=== PATIENT | male | born 1995 | race Caucasian/White ===

== ENCOUNTER 2017-03-27 11:25 | Inpatient (IN) | payer OTHER ==
[~2017-03-27] VITALS: Ht 182.9 cm; Wt 77.9 kg
[2017-03-27] MEDS ORDERED: TUMS500C PO (11:37)
[2017-03-27] MEDS ORDERED: IBUP-1022 PO (11:37)
[2017-03-27] MEDS ORDERED: NS 1,000 ML IV ONE (12:15)
[2017-03-27] MEDS ORDERED: GASTROGRAFIN SOLUTION 30ML (Q9963) PO ONE ×2 (12:30→13:00)
[2017-03-27 12:48] LABS: BASO % 0.2 % (0.0-1.0); EOS % 0.3 % (0.0-3.0); LARGE UNSTAINED CELL # 0.1 K/mm3 (0.0-0.4); LARGE UNSTAINED CELL % 0.6 % (0.0-4.0); LYMPH # 1.3 K/mm3 (1.5-6.5); LYMPH % 7.3 % (24.0-44.0); MEAN CORPUSCULAR HEMOGLOBIN 33.4 pg (27.0-33.0); MEAN CORPUSCULAR HGB CONC 34.3 g/dl (32.0-36.5); MEAN CORPUSCULAR VOLUME 97.2 fl (80.0-96.0); MONO # 0.8 K/mm3 (0.0-0.8); MONO % 4.8 % (0.0-5.0); NEUTROPHILS # 14.1 K/mm3 (1.8-7.7); NEUTROPHILS % 86.7 % (36.0-66.0); PLATELET COUNT, AUTOMATED 217 k/mm3 (150-450); RED CELL DISTRIBUTION WIDTH 12.2 % (11.5-14.5); WHITE BLOOD COUNT 16.2 K/mm3 (4.0-10.0)
[2017-03-27 13:00] LABS: ALBUMIN 5.1 GM/DL (3.2-5.2); ALBUMIN/GLOBULIN RATIO 1.19 (1.00-1.93); ALKALINE PHOSPHATASE 91 U/L (45-117); ALT/SGPT 21 U/L (12-78); ANION GAP 6 MEQ/L (8-16); AST/SGOT 9 U/L (15-37); BILIRUBIN,DIRECT 0.3 MG/DL (0.0-0.2); BILIRUBIN,TOTAL 2.7 MG/DL (0.2-1.0); BLOOD UREA NITROGEN 11 MG/DL (7-18); CALCIUM LEVEL 10.1 MG/DL (8.5-10.1); CARBON DIOXIDE LEVEL 33 MEQ/L (21-32); CHLORIDE LEVEL 100 MEQ/L (98-107); CREATININE FOR GFR 0.91 MG/DL (0.70-1.30); GLOMERULAR FILTRATION RATE > 60.0 (>60); GLUCOSE, FASTING 86 MG/DL (70-105); POTASSIUM SERUM 3.7 MEQ/L (3.5-5.1); SODIUM LEVEL 139 MEQ/L (136-145); TOTAL PROTEIN 9.4 GM/DL (6.4-8.2)
[2017-03-27] MEDS ORDERED: ONDANSETRON 4MG/2ML VIAL (J2405) IV ONE (13:15)
[2017-03-27] MEDS ORDERED: MORPHINE 4 MG/ML 1ML SYRINGE IV ONE ×2 (13:15→14:15)
[2017-03-27] MEDS ORDERED: ISOVUE-370 76% 100ML VIAL (Q9967) As Ordered ONE (13:33)
--- NOTE | 2017-03-27 14:05 | REP ---
CT abdomen pelvis with IV and oral contrast: There are no comparisons. The visualized lung bates are unremarkable. The hepatic parenchyma, gallbladder, pancreas and spleen are normal size and unremarkable. The adrenals, kidneys and abdominal aorta are unremarkable. There is no bowel distension or obstruction. Pelvis: There is a large right lower quadrant phlegmon adjacent to the cecum containing two calcifications measuring 7.0 cm cranial caudad by 4.6 cm transversely by 6.2 cm AP, compatible with appendiceal abscess and phlegmon. There is a small volume of ascites in the dependent pelvis. The pelvic bowel loops are otherwise unremarkable. Impression: Large right lower quadrant phlegmon adjacent to the cecum and containing two calcifications, compatible with periappendiceal phlegmon. There is a small volume of ascites in the pelvis. There is no pneumoperitoneum. No bowel distension or obstruction. No hydronephrosis. The gallbladder is unremarkable. Signed by Juan Carlos Kessler MD 03/27/2017 01:58 P
[2017-03-27] MEDS ORDERED: PIPERACILLIN/TAZOBACTAM SOD 3.375 GM in D5W MINI-BAG PLUS 50 ML IV ONE (14:15)
[2017-03-27] MEDS ORDERED: HYDROmorphone HCL 1 MG/ML SYRINGE (J1170) IV ONE (16:00)
--- NOTE | 2017-03-27 18:41 | ED PDOC ---
Post-Departure Follow-Up pt still in pain after sleeping and resting for extended period. surgeoncl was contacted and called to emergency in OR and will come down to admit and care for patient after completion in OR. pt still with stable VS at this time. awaiting orders ERA JACKSON PA-C Mar 27, 2017 18:41
[2017-03-27] MEDS ORDERED: BUPIVACAINE HCL 0.25% 30 ML VIAL As Ordered ONE (20:10)
[2017-03-27] MEDS ORDERED: MIDAZOLAM INJ 2 MG/2 ML VIAL (J2250) As Ordered ONE (20:13)
[2017-03-27] MEDS ORDERED: fentaNYL 100 MCG/2 ML INJECTION (J3010) As Ordered ONE (20:13)
[2017-03-27] MEDS ORDERED: PROPOFOL 200 MG/20 ML VIAL As Ordered ONE (20:13)
[2017-03-27] MEDS ORDERED: ROCURONIUM BROMIDE 50 MG/5 ML VIAL/SYRINGE As Ordered ONE ×3 (20:14→22:32)
[2017-03-27] MEDS ORDERED: ONDANSETRON 4MG/2ML VIAL (J2405) As Ordered ONE (20:14)
[2017-03-27] MEDS ORDERED: LIDOCAINE 2% INJ 100 MG/5 ML SDV (FOR ANES.) As Ordered ONE (20:14)
[2017-03-27] MEDS ORDERED: KETOROLAC 60 MG/2 ML VIAL (J1885) As Ordered ONE (20:14)
[2017-03-27] MEDS ORDERED: ZOSYN 3.375 GM VIAL (J2543) As Ordered ONE (20:41)
[2017-03-27] MEDS ORDERED: fentaNYL 250 MCG/5 ML INJECTION (J3010) As Ordered ONE (20:45)
[2017-03-27] MEDS ORDERED: GLYCOPYRROLATE INJ 0.2 MG/ML 2 ML VIAL As Ordered ONE (20:54)
[2017-03-27] MEDS ORDERED: NEOSTIGMINE 1MG/ML 5 ML SYRINGE (J2710) As Ordered ONE (20:54)
[2017-03-27] MEDS ORDERED: METOCLOPRAMIDE INJ 10MG/2ML VIAL (J2765) As Ordered ONE (21:06)
[2017-03-27] MEDS ORDERED: LABETALOL HCL 100 MG/20 ML VIAL As Ordered ONE (21:20)
[2017-03-27] MEDS ORDERED: HYDROmorphone HCL 2 MG/ML 1ML VIAL (J1170) As Ordered ONE (22:44)
[2017-03-28] VITALS (10 sets, daily range): BP systolic 106–141; BP diastolic 53–67
[2017-03-28] MEDS ORDERED: MEPERIDINE INJ 25 MG/ML VIAL (J2175) IV PRN
[2017-03-28] MEDS ORDERED: METOCLOPRAMIDE INJ 10MG/2ML VIAL (J2765) IV PRN
[2017-03-28] MEDS ORDERED: fentaNYL 100 MCG/2 ML INJECTION (J3010) IV PRN
[2017-03-28] MEDS ORDERED: KETOROLAC 30 MG/ML VIAL (J1885) IV PRN
[2017-03-28] MEDS ORDERED: MORPHINE 2 MG/ML 1ML SYRINGE IV PRN (01:00)
[2017-03-28] MEDS ORDERED: ACETAMINOPHEN TAB 650MG DOSE (2X325MG) PO PRN (01:00)
[2017-03-28] MEDS ORDERED: ONDANSETRON 4MG/2ML VIAL (J2405) IV PRN ×2 (01:00)
[2017-03-28] MEDS ORDERED: MORPHINE 4 MG/ML 1ML SYRINGE IV PRN (01:15)
[2017-03-28] MEDS: LR 1,000 ML IV SCH ×2 (01:18→14:09)
[2017-03-28] MEDS: PIPERACILLIN/TAZOBACTAM SOD 3.375 GM in D5W MINI-BAG PLUS 50 ML IV SCH ×4 (02:59→21:39)
[2017-03-28] MEDS: KETOROLAC 30 MG/ML VIAL (J1885) IV SCH ×4 (03:00→21:40)
[2017-03-28 07:08] LABS: BASO % 0.1 % (0.0-1.0); EOS % 0.1 % (0.0-3.0); LARGE UNSTAINED CELL # 0.1 K/mm3 (0.0-0.4); LARGE UNSTAINED CELL % 0.8 % (0.0-4.0); LYMPH % 6.1 % (24.0-44.0); MEAN CORPUSCULAR HEMOGLOBIN 34.2 pg (27.0-33.0); MEAN CORPUSCULAR HGB CONC 35.4 g/dl (32.0-36.5); MEAN CORPUSCULAR VOLUME 96.7 fl (80.0-96.0); MONO # 0.6 K/mm3 (0.0-0.8); MONO % 4.5 % (0.0-5.0); NEUTROPHILS # 12.3 K/mm3 (1.8-7.7); NEUTROPHILS % 88.3 % (36.0-66.0); PLATELET COUNT, AUTOMATED 166 k/mm3 (150-450)
[2017-03-28 07:35] LABS: ALBUMIN 2.8 GM/DL (3.2-5.2); ALBUMIN/GLOBULIN RATIO 1.22 (1.00-1.93); ALKALINE PHOSPHATASE 50 U/L (45-117); ALT/SGPT 15 U/L (12-78); ANION GAP 7 MEQ/L (8-16); AST/SGOT 9 U/L (15-37); BILIRUBIN,TOTAL 4.4 MG/DL (0.2-1.0); BLOOD UREA NITROGEN 10 MG/DL (7-18); CALCIUM LEVEL 8.3 MG/DL (8.5-10.1); CARBON DIOXIDE LEVEL 31 MEQ/L (21-32); CHLORIDE LEVEL 102 MEQ/L (98-107); CREATININE FOR GFR 1.05 MG/DL (0.70-1.30); GLOMERULAR FILTRATION RATE > 60.0 (>60); GLUCOSE, FASTING 125 MG/DL (70-105); POTASSIUM SERUM 4.3 MEQ/L (3.5-5.1); SODIUM LEVEL 140 MEQ/L (136-145); TOTAL PROTEIN 5.1 GM/DL (6.4-8.2)
[2017-03-29] VITALS: BP_SYST 126; BP_SYST 91; BP_DIAS 52; BP_DIAS 59
[2017-03-29] MEDS: KETOROLAC 30 MG/ML VIAL (J1885) IV SCH (02:39)
[2017-03-29] MEDS: PIPERACILLIN/TAZOBACTAM SOD 3.375 GM in D5W MINI-BAG PLUS 50 ML IV SCH ×4 (02:39→21:00)
[2017-03-29 04:00] VITALS: BP 123/56
[2017-03-29 06:45] LABS: BASO % 0.2 % (0.0-1.0); EOS # 0.1 K/mm3 (0.0-0.50); EOS % 0.9 % (0.0-3.0); LARGE UNSTAINED CELL # 0.1 K/mm3 (0.0-0.4); LARGE UNSTAINED CELL % 1.3 % (0.0-4.0); LYMPH # 1.1 K/mm3 (1.5-6.5); LYMPH % 10.4 % (24.0-44.0); MEAN CORPUSCULAR HEMOGLOBIN 34.1 pg (27.0-33.0); MEAN CORPUSCULAR HGB CONC 35.1 g/dl (32.0-36.5); MONO # 0.7 K/mm3 (0.0-0.8); MONO % 7.2 % (0.0-5.0); NEUTROPHILS # 7.4 K/mm3 (1.8-7.7); PLATELET COUNT, AUTOMATED 152 k/mm3 (150-450); RED CELL DISTRIBUTION WIDTH 12.1 % (11.5-14.5); WHITE BLOOD COUNT 9.3 K/mm3 (4.0-10.0)
[2017-03-29] MEDS ORDERED: IBUPROFEN 600 MG TAB PO PRN (07:30)
[2017-03-29] MEDS ORDERED: NORCO, ANEXSIA 5/325MG TABLET (HYDROcodone/ACETAMINOPHEN) PO PRN ×2 (07:30)
[2017-03-29 08:00] VITALS: BP 127/62
[2017-03-29 12:00] VITALS: BP 118/74
[2017-03-29 12:50] LABS: ALBUMIN 2.7 GM/DL (3.2-5.2); ALBUMIN/GLOBULIN RATIO 1.04 (1.00-1.93); ALKALINE PHOSPHATASE 52 U/L (45-117); ALT/SGPT 14 U/L (12-78); ANION GAP 7 MEQ/L (8-16); AST/SGOT 12 U/L (15-37); BILIRUBIN,TOTAL 3.6 MG/DL (0.2-1.0); BLOOD UREA NITROGEN 9 MG/DL (7-18); CALCIUM LEVEL 8.1 MG/DL (8.5-10.1); CARBON DIOXIDE LEVEL 29 MEQ/L (21-32); CHLORIDE LEVEL 106 MEQ/L (98-107); CREATININE FOR GFR 0.79 MG/DL (0.70-1.30); GLOMERULAR FILTRATION RATE > 60.0 (>60); GLUCOSE, FASTING 93 MG/DL (70-105); POTASSIUM SERUM 3.9 MEQ/L (3.5-5.1); SODIUM LEVEL 142 MEQ/L (136-145); TOTAL PROTEIN 5.3 GM/DL (6.4-8.2)
[2017-03-29 16:00] VITALS: BP 139/63
[2017-03-29 20:14] VITALS: BP 132/62
[2017-03-30 00:10] VITALS: BP 146/66
[2017-03-30] MEDS: PIPERACILLIN/TAZOBACTAM SOD 3.375 GM in D5W MINI-BAG PLUS 50 ML IV SCH ×3 (03:41→15:23)
[2017-03-30 04:20] VITALS: BP 140/63
--- NOTE | 2017-03-30 05:51 | RO ---
DATE OF PROCEDURE: 03/29/2017 PREOPERATIVE DIAGNOSIS: Appendicitis. POSTOPERATIVE DIAGNOSIS:Perforated appendicitis with diffuse peritonitis PROCEDURE: Laparoscopic converted to open appendectomy with irrigation of peritonitis and control of bleeding. SURGEON: Dr. Lyle Andrade BOILER SETTER: Otilio Saunders MS III ANESTHESIA: General. ESTIMATED BLOOD LOSS:500cc INDICATIONS FOR PROCEDURE: The patient is a 22-year-old man who presented to the emergency department with a 3-day history of abdominal pain becoming more localized to the right lower quadrant. This became more severe on March 27. Evaluation in the emergency department revealed marked tenderness in the right lower quadrant with an elevated white blood cell count. A CT scan was done which showed inflammatory changes with evidence of appendicolith within the appendix. There was free fluid in the pelvis. At the time I examined the patient, he clearly had diffuse abdominal tenderness with abdominal rigidity consistent with peritonitis. He is now for a laparoscopic appendectomy. OPERATIVE PROCEDURE: The patient was placed under general endotracheal anesthesia. The patient's abdomen was prepped and draped in a sterile fashion. 0.25% Marcaine was infiltrated at each of the trocar sites. A short supraumbilical midline incision was made. This was deepened through the subcutaneous tissues and the peritoneum was opened. On opening the peritoneum, some turbid yellowish fluid was identified. Cultures were obtained for aerobic and anaerobic culture and Gram stain. A Kristian cannula was inserted. The abdomen was insufflated with carbon dioxide gas. The scope was inserted. Inspection revealed signs of diffuse peritonitis. There was yellow-green fluid up along the right side of the liver and in the subhepatic space. There was some fibrinous exudate and yellow greenish fluid scattered in the abdomen. The anterior abdominal wall peritoneum was quite inflamed, particularly on the right side of the abdomen. There was some omentum adherent down in the right lower quadrant. A 5 mm trocar was placed in the lateral left lower quadrant and a second 5 mm trocar was placed in the left lower quadrant slightly higher but still below the umbilicus. Initially I elected to proceed with irrigation of the peritonitis to remove as much contamination as possible. The patient was tilted to a reverse Trendelenburg position and the suction vessel scrapper was used to irrigate the upper abdomen washing all of the contaminated fluid toward the pelvis. The fluid was then suctioned. The patient was returned to a flat position and fluid was evacuated from the pelvis. He was rolled to the left slightly. The omentum adherent down into the right lower quadrant, was freed by blunt dissection with the graspers and removed into the upper abdomen. The tip of the patient's inflamed appendix was identified. The cecum was clearly inflamed. Dissection proceeded to identify the appendix. The terminal ileum was also somewhat inflamed with some inflamed fatty tissue near the ileocecal junction. It was difficult to identify the appendix at first. With some blunt dissection, I was able to open some tissue planes and identify the appendix. The tip of the appendix was adherent down into the retroperitoneum inferior to the cecum. I attempted to identify the base of the appendix and this was identified. I was able to transect the appendix using a load of the 45 mm endoscopic stapler. Then using retrograde dissection, the mesoappendix was divided using the hook cautery. The appendicular artery was identified and this was cauterized but the cauterization was not adequate and the vessel retracted toward the retroperitoneum. There was arterial bleeding from this small vessel. Multiple attempts were made to gain control of this small vessel. The area was irrigated several times to improve exposure. Using different graspers, I attempted to grasp the end of the vessel but without success. A fourth trocar 5 mm in diameter was placed in the right lower quadrant of the abdomen over the area of the appendix to try to achieve a more direct approach to grasping the vessel again without success. Ultimately I elected to perform a small laparotomy using a 5-6 cm muscle-splitting incision in the right lower quadrant centered on the trocar site. Once this had been opened, the area of the bleeding was readily exposed. I was still unable to grasp the vessel with a clamp but placed a suture around the bleeding vessel with complete control of hemorrhage. The area was then irrigated to remove spilled blood. I suctioned up along the right paracolic gutter toward the liver to remove blood in this direction as well. Once the majority of the blood had been removed, the right lower quadrant incision was closed in layers. The peritoneum was closed with chromic. The transversus abdominus was approximated with several #0 Vicryl sutures. The internal oblique muscle fascia was approximated with several interrupted simple sutures of #0 Vicryl and the external oblique was closed with a running suture of #0 Vicryl. The abdomen was then reinflated. The abdomen was again thoroughly irrigated first just to remove blood and clot. The appendix was completely excised and placed in an Endopouch. The entire abdomen was then systematically irrigated again by irrigating the upper quadrants and allowing the fluid to drain into the pelvis and subsequently by placing the patient in a Trendelenburg position and irrigating the pelvis and lower abdomen. Finally the patient was returned to a reverse Trendelenburg position and all of the remaining irrigant was removed as thoroughly as possible. Final inspection showed actually no significant evidence of residual exudate. There was still some inflammation identified. There was no further bleeding. The closure of the appendiceal stump looked good and intact. The patient was placed in a flat position. The abdomen was deflated and the trocars were removed. The appendix was recovered through the Delgadillo site and sent for permanent pathology. The peritoneum was closed with #2-0 Vicryl. The abdominal fascia at the Delgadillo site was closed with interrupted simple sutures of #2-0 Vicryl. The skin incisions were then all closed with skin elgin. The patient tolerated the procedure well. His estimated blood loss, though difficult to estimate was approximately 500 mL. We had used approximately 8-9 liters of irrigation in the abdomen. The patient was awakened in the operating room, extubated and moved to the recovery room in stable condition. ANGELICA
[2017-03-30 06:40] LABS: BASO % 0.3 % (0.0-1.0); EOS # 0.2 K/mm3 (0.0-0.50); EOS % 3.6 % (0.0-3.0); LARGE UNSTAINED CELL # 0.1 K/mm3 (0.0-0.4); LARGE UNSTAINED CELL % 1.8 % (0.0-4.0); LYMPH # 1.2 K/mm3 (1.5-6.5); LYMPH % 17.2 % (24.0-44.0); MEAN CORPUSCULAR HGB CONC 34.9 g/dl (32.0-36.5); MEAN CORPUSCULAR VOLUME 97.4 fl (80.0-96.0); MONO # 0.6 K/mm3 (0.0-0.8); MONO % 8.8 % (0.0-5.0); NEUTROPHILS # 4.3 K/mm3 (1.8-7.7); NEUTROPHILS % 68.4 % (36.0-66.0); PLATELET COUNT, AUTOMATED 170 k/mm3 (150-450); RED CELL DISTRIBUTION WIDTH 11.9 % (11.5-14.5); WHITE BLOOD COUNT 6.3 K/mm3 (4.0-10.0)
[2017-03-30 07:57] LABS: ALBUMIN 2.7 GM/DL (3.2-5.2); ALBUMIN/GLOBULIN RATIO 0.75 (1.00-1.93); ALKALINE PHOSPHATASE 53 U/L (45-117); ALT/SGPT 18 U/L (12-78); ANION GAP 7 MEQ/L (8-16); AST/SGOT 13 U/L (15-37); BILIRUBIN,TOTAL 2.1 MG/DL (0.2-1.0); BLOOD UREA NITROGEN 10 MG/DL (7-18); CALCIUM LEVEL 8.8 MG/DL (8.5-10.1); CARBON DIOXIDE LEVEL 30 MEQ/L (21-32); CHLORIDE LEVEL 107 MEQ/L (98-107); GLOMERULAR FILTRATION RATE > 60.0 (>60); GLUCOSE, FASTING 84 MG/DL (70-105); POTASSIUM SERUM 3.7 MEQ/L (3.5-5.1); SODIUM LEVEL 144 MEQ/L (136-145); TOTAL PROTEIN 6.3 GM/DL (6.4-8.2)
[2017-03-30 08:00] VITALS: BP 129/63
[2017-03-30 12:00] VITALS: BP 146/89
[2017-03-30 16:00] VITALS: BP 125/60
--- NOTE | 2017-04-27 21:15 | DSES ---
DATE OF ADMISSION: 03/27/2017 DATE OF DISCHARGE: 03/30/2017 ADMISSION DIAGNOSIS: Perforated appendicitis with diffuse peritonitis. HPI: A 22-year-old man who presented to the emergency department with a 4-day history of abdominal pain, which had worsened and become much more diffuse on the day of presentation. CT scan revealed changes consistent with appendicitis with appendicolith. There was some free fluid noted. He was diffusely tender with a rigid abdomen. The patient was admitted with appendicitis, which was felt to be perforated for a laparoscopic and possible open appendectomy. HOSPITAL COURSE: The patient received preoperative Zosyn 3.375 grams. He was taken to the operating room, late on the evening of March 27. At surgery, he was found to have perforated appendicitis with diffuse peritonitis. It was necessary to convert his procedure to an open procedure to control bleeding from his appendicular artery and to complete irrigation of his peritonitis. Postoperatively, he was continued on antibiotic coverage with Zosyn. He had stable vital signs. He tolerated clear liquids well shortly after surgery. He reported little discomfort. His cultures grew E-coli and Klebsiella which were both sensitive to his Zosyn. His total bilirubin had been elevated on the first day postop, but improved spontaneously over the ensuing days. He continued to make good progress and was felt to be ready for discharge on March 30, 2017. He was discharged with instructions to follow up in the office in approximately 2 weeks. He was placed on convalescent leave with recommendations to this effect for his superiors in the . He was to pursue light activity as tolerated. He could eat a regular diet. He was advised that he could shower but not take any baths. He was not provided with any prescriptions for narcotics. FINAL DIAGNOSIS: Acute appendicitis with perforation and diffuse peritonitis. PROCEDURE PERFORMED: Laparoscopic converted to open appendectomy with irrigation of peritonitis and control of bleeding. ANGELICA
== END 2017-03-30 17:15 | disposition home or self-care (01) | DRG 340 ==
LOC: M ED 12:40 → M SDC 19:39 → M ED 20:02 → M PED 03-28 00:13 → M SDC 03-29 11:32 → M PED 03-29 11:33
PROVIDERS: ADMIT Surgery; ATTEND Surgery
PROC: 0DTJ0ZZ Resection of Appendix, Open Approach (ICD-10-PCS; principal; 2017-03-29)
PROC: 04Q Lower Arteries, Repair (ICD-10-PCS; 2017-03-29)
DX: K35.3 Acute appendicitis with localized peritonitis (principal); B96.29 Other Escherichia coli [E. coli] as the cause of diseases classified elsewhere; B96.1 Klebsiella pneumoniae [K. pneumoniae] as the cause of diseases classified elsewhere